=== PATIENT | male | born 1935 | race Caucasian/White ===

== ENCOUNTER 2016-10-18 17:38 | Inpatient (IN) | payer OTHER, MEDICAID ==
[~2016-10-18] VITALS: Ht 167.6 cm; Wt 78.1 kg
[2016-10-18 18:58] LABS: BASOPHIL % 0.9 % (0-2); PLATELET COUNT 137 x10^3mcL (130-400); RED CELL DISTRIBUTION WIDTH 13.6 % (11.5-14.5)
[2016-10-18 19:03] LABS: CALCIUM 8.3 mg/dL (8.5-10.1); CARBON DIOXIDE 27.5 mmol/L (21-32); CHLORIDE SERUM 102 mmol/L (98-107); CREATININE SERUM 1.6 mg/dL (0.7-1.3); GLUCOSE SERUM 93 mg/dL (74-106); POTASSIUM SERUM 3.7 mmol/L (3.5-5.1); SODIUM SERUM 136 mmol/L (136-145)
[2016-10-18 19:07] LABS: ALKALINE PHOSPHATASE 445 U/L (46-116); ALT/SGPT 30 U/L (16-63); AST/SGOT 37 U/L (15-37); BILIRUBIN TOTAL 1.2 mg/dL (0.20-1.00); CHOLESTEROL 142 mg/dL (<200); LIPASE 198 IU/L (73-393); TOTAL PROTEIN, SERUM 7.3 g/dL (6.4-8.2); TRIGLYCERIDES 41 mg/dL (<150)
[2016-10-18 19:08] LABS: ALBUMIN 2.9 g/dL (3.4-5.0); CHOLESTEROL/HDL RATIO 1.8; HDL CHOLESTEROL 79 mg/dL (40-60)
[2016-10-18 19:19] LABS: T3 TOTAL 0.82 ng/mL
[2016-10-18 19:36] LABS: FREE T4 1.35 ng/dL (0.76-1.46); FREE THYROXINE INDEX 2.8 ug/dL (1.4-4.5); T4(THYROXINE) 8.3 ug/dL (4.7-13.3)
[2016-10-18 21:17] LABS: UA SPECIFIC GRAVITY 1.015 (1.005-1.035); microscopic required? YES; urine erythrocyte TRACE (NEGATIVE)
[2016-10-18 22:54] VITALS: BP 111/66
[2016-10-18 23:25] LABS: MAGNESIUM 2.1 mg/dL (1.8-2.4)
[2016-10-19 05:25] VITALS: BP 110/65
[2016-10-19 06:10] VITALS: BP 104/50
[2016-10-19 06:19] LABS: BASOPHIL % 0.4 % (0-2); RED CELL DISTRIBUTION WIDTH 13.8 % (11.5-14.5)
[2016-10-19 06:40] LABS: CALCIUM 8.1 mg/dL (8.5-10.1); CARBON DIOXIDE 24.9 mmol/L (21-32); CHLORIDE SERUM 107 mmol/L (98-107); CREATININE SERUM 1.4 mg/dL (0.7-1.3); GLUCOSE SERUM 77 mg/dL (74-106); POTASSIUM SERUM 3.9 mmol/L (3.5-5.1); SODIUM SERUM 141 mmol/L (136-145)
[2016-10-19 06:59] LABS: PLATELET COUNT 123 x10^3mcL (130-400)
[2016-10-19 07:09] LABS: AMPHETAMINE QUAL UR NONE DETECTED (NEG <=1000)
[2016-10-19 10:00] VITALS: BP 106/62
[2016-10-19 17:48] VITALS: BP 106/62
[2016-10-19 20:39] VITALS: BP 95/55
[2016-10-20 05:31] VITALS: BP 137/65
[2016-10-20 05:59] LABS: BASOPHIL % 0.4 % (0-2); RED CELL DISTRIBUTION WIDTH 13.8 % (11.5-14.5)
[2016-10-20 06:13] LABS: CARBON DIOXIDE 27.4 mmol/L (21-32); CHLORIDE SERUM 108 mmol/L (98-107); CREATININE SERUM 1.6 mg/dL (0.7-1.3); GLUCOSE SERUM 86 mg/dL (74-106); PHOSPHOROUS 3.2 mg/dL (2.5-4.9); SODIUM SERUM 140 mmol/L (136-145)
[2016-10-20 06:38] LABS: PLATELET COUNT 107 x10^3mcL (130-400)
[2016-10-20 09:20] VITALS: BP 111/61
[2016-10-20 12:35] VITALS: BP 99/59
[2016-10-20 16:49] VITALS: BP 99/45
[2016-10-20 21:14] VITALS: BP 133/70
[2016-10-21 05:31] VITALS: BP 120/69
[2016-10-21 06:19] LABS: BASOPHIL % 0.4 % (0-2); RED CELL DISTRIBUTION WIDTH 13.8 % (11.5-14.5)
[2016-10-21 06:24] LABS: CALCIUM 8.5 mg/dL (8.5-10.1); CARBON DIOXIDE 25.3 mmol/L (21-32); CHLORIDE SERUM 109 mmol/L (98-107); CREATININE SERUM 1.5 mg/dL (0.7-1.3); GLUCOSE SERUM 94 mg/dL (74-106); MAGNESIUM 1.9 mg/dL (1.8-2.4); PHOSPHOROUS 3.5 mg/dL (2.5-4.9); POTASSIUM SERUM 4.1 mmol/L (3.5-5.1); SODIUM SERUM 143 mmol/L (136-145)
[2016-10-21 07:19] LABS: PLATELET COUNT 105 x10^3mcL (130-400)
[2016-10-21] MEDS ORDERED: LEVAQUIN750 MG PO (09:36)
[2016-10-21] MEDS ORDERED: CLINDAMYCIN HC300 MG PO (09:36)
[2016-10-21] MEDS ORDERED: LAC PO (09:37)
[2016-10-21] MEDS ORDERED: LIPI10 PO (09:57)
[2016-10-21] MEDS ORDERED: ECO81 PO (09:57)
[2016-10-21 10:00] VITALS: BP 120/72
[2016-10-21 12:05] VITALS: Ht 167.6 cm; Wt 78.1 kg
[2016-10-21] MEDS ORDERED: VENTOLIN H0.09 MG/A1 INH (12:24)
[2016-10-21] MEDS ORDERED: NICODERM C21 MG/241 TOP (12:27)
[2016-10-21 13:09] VITALS: BP 120/72
[2016-10-21 14:07] VITALS: BP 126/73
== END 2016-10-21 16:55 | disposition home or self-care (01) | DRG 177 ==
LOC: ED 17:38 → DU 21:52
PROVIDERS: Specialist; ADMIT Family Medicine
DX: J69.0 Pneumonitis due to inhalation of food and vomit (principal); N17.0 Acute kidney failure with tubular necrosis; E44.0 Moderate protein-calorie malnutrition; N40.0 Benign prostatic hyperplasia without lower urinary tract symptoms; N18.9 Chronic kidney disease, unspecified; I65.21 Occlusion and stenosis of right carotid artery; E87.8 Other disorders of electrolyte and fluid balance, not elsewhere classified; D64.9 Anemia, unspecified; R31.9 Hematuria, unspecified; M62.50 Muscle wasting and atrophy, not elsewhere classified, unspecified site; Z68.27 Body mass index [BMI] 27.0-27.9, adult; Z85.828 Personal history of other malignant neoplasm of skin
CPT/HCPCS: 83880; 84439; 92610; 94150; 97110-GP; 97530-GP; J1644; J2543; J3411; J3475; J3490; J7030; J7620; Q0092